=== PATIENT | male | born 1980 | race Caucasian/White ===

== ENCOUNTER 2021-03-21 01:09 | Emergency (ER) | payer OTHER ==
--- NOTE | 2021-03-21 02:37 | ED Physician Documentation ---
History of Present Illness - Stated complaint Stated Complaint: NOSE LAC - Chief complaint Chief Complaint: Laceration - History obtained from History obtained from: Patient - History of Present Illness Timing: Today - Additonal information Additional information: 40-year-old male turned around walked right into a wall lacerated the bridge of his nose. He did not get locked out and he has not otherwise been ill he is coming today with a laceration to his nasal bridge with some swelling to his nose. He is breathing through his nose well. He denies any neck pain nausea vomiting or concussion symptoms. Review of Systems Constitutional: denies: Fever Nose: reports: Other (Nasal bridge laceration). denies: Rhinorrhea / runny nose, Congestion Cardiac: denies: Chest pain / pressure Respiratory: denies: Cough GI: denies: Vomiting, Diarrhea Musculoskeletal: denies: Neck pain, Back pain, Extremity pain PD PAST MEDICAL HISTORY - Past Medical History Past Medical History: Yes Other Past Medical History: deviated septum - Past Surgical History Past Surgical History: Yes HEENT: Rhinoplasty - Present Medications Home Medications: Ambulatory Orders Medication Instructions Recorded Confirmed No Known Home Medications 03/21/21 03/21/21 - Allergies Allergies/Adverse Reactions: Allergies Allergy/AdvReac Type Severity Reaction Status Date / Time No Known Drug Allergies Allergy Verified 03/21/21 01:15 - Social History Does the pt smoke?: No Smoking Status: Never smoker Does the pt drink ETOH?: No Does the pt have substance abuse?: No - Immunizations Immunizations are current?: Yes PD ED PE NORMAL - Vitals Vital signs reviewed: Yes (Hypertensive mild) - General General: Alert and oriented X 3, No acute distress, Well developed/nourished - HEENT HEENT: PERRL, EOMI, Other (There is a 2 cm laceration vertically on the nasal bridge there is not wide distraction of the tissue and the knee nose itself does not appear deformed it is swollen uniformly.) - Neck Neck: Supple, no meningeal sign, No bony TTP - Respiratory Respiratory: No respiratory distress - Derm Derm: Normal color, Warm and dry, No rash - Extremities Extremities: No deformity, No edema - Neuro Neuro: Alert and oriented X 3, 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, No motor deficit, No sensory deficit, Normal speech Eye Opening: Spontaneous Motor: Obeys Commands Verbal: Oriented GCS Score: 15 - Psych Psych: Normal mood, Normal affect Results - Vitals Vitals: Vital Signs - 24 hr 03/21/21 03/21/21 01:15 01:26 Temperature 36.5 C 36.5 C Heart Rate 50 L 52 L Respiratory 16 16 Rate Blood Pressure 135/84 H 135/84 H O2 Saturation 98 98 Oxygen O2 Source Room air Procedures - Laceration (location) Nasal bridge Wound type: Linear, Superficial, Clean Wound preparation: Hibiclens, Wound explored, To the base Skin layer closure: Dermabond Other: Patient tolerated well, No complications, Neurovascular intact, Tetanus booster given PD MEDICAL DECISION MAKING - ED course Complexity details: considered differential, d/w patient ED course: 40-year-old male with a nasal bridge laceration is treated with Dermabond.He does not appear to have significant deformity to his nose we did discuss fracture care. Departure - Departure Disposition: 01 Home, Self Care Clinical Impression: Simple laceration of nose Nasal contusion Qualifiers: Encounter type: initial encounter Qualified Code(s): S00.33XA - Contusion of nose, initial encounter Condition: Stable Instructions: ED Laceration Facial Skin Glue, ED Contusion Nasal Vs Fx No X Ray Follow-Up: [facility] [Provider Group]
[2021-03-21] MEDS ORDERED: TETANUS/DIPHTHERIA/PERTUSSIS 0.5 ML SYRINGE IM ONE (02:51)
[2021-03-21 03:12] VITALS: BP 122/79
== END 2021-03-21 03:11 | disposition home or self-care (01) ==
LOC: ED 01:09
DX: S01.21XA Laceration without foreign body of nose, initial encounter (principal); W22.01XA Walked into wall, initial encounter; Y93.01 Activity, walking, marching and hiking
CPT/HCPCS: 12011; 90471; 99282; 99283